=== PATIENT | female | born 1945 | race Caucasian/White ===

== ENCOUNTER → 2017-04-03 11:06 | Outpatient (CLI) | payer MEDICARE, OTHER, SELFPAY ==
[2017-04-03 11:14] LABS: Mucous, Urine 0 SEEN /hpf (<or=2+); Red Blood Cells-Urine 0 SEEN /hpf (0-5)
[2017-04-03 11:38] LABS: Color, Urine Yellow (Yellow); Glucose, Dipstick Normal (Normal); Ketone-Dipstick Negative (Negative); Leukocyte Esterase-Dipstick 100 /ul (Negative); Nitrite-Dipstick Negative (Negative); Occult Blood-Urine Negative /ul (Negative); Protein-Dipstick Negative (Negative); Urine Bilirubin Dipstick Negative (Negative); Urine Clarity Clear (Clear); Urine Urobilinogen Normal (Normal)
[2017-04-03 11:54] LABS: Bacteria RARE /hpf (None Seen); Squamous Epithelial Cells - UA 0-5 SEEN /hpf (5-10); White Blood Cells 0-5 SEEN /hpf (0-5)
[2017-04-03 11:57] LABS: Microalbumin,Random Urine 7.4 mg/L (NO RANGE EST.); Microalbumin:Creatinine Ratio 8.9 mg/g CRE (<30 mg/g CRE)
[2017-04-03 12:33] LABS: Absolute Lymphocyte Count 1.37 X10^3/ul (0.83-4.51); Absolute Neutrophil Count 3.1 X10^3/uL (2.0-7.7); Basophil# 0.03 X10^3/uL; Basophil% 0.6 % (0-1); Eosinophil# 0.15 X10^3/uL; Eosinophils% 2.9 % (0-5); Hematocrit 33.7 % (37-47); Hemoglobin 10.4 g/dl (12.0-15.0); Lymphocyte # 1.37 X10^3/ul (4.0); Lymphocyte % 26.8 % (19-41); Mean Corp Hgb Conc 30.9 g/gl (32-36); Mean Corpuscular Hgb 27.1 pg (27.0-32.0); Mean Corpuscular Volume 87.8 fL (81-99); Mean Platelet Vol. 9.5 fl (6.2-12.0); Monocyte# 0.42 X10^3/uL; Monocyte% 8.2 % (0-10); Neutrophil # 3.13 X10^3/uL (2.7-7.7); Neutrophil % 61.3 % (47-70); Platelet Count 192 K/mm3 (150-450); RBC Distribution Width CV 14.7 % (11.6-14.6); RBC Distribution Width SD 46.9 fl (35.1-43.9); Red Blood Count 3.84 M/mm3 (4.2-5.4); White Blood Count 5.1 K/mm3 (4.4-11.0)
[2017-04-03 12:45] LABS: POSITIVE COUNT NO; POSITIVE DIFFERENTIAL NO; POSITIVE MORPHOLOGY NO
[2017-04-03 13:10] LABS: Vitamin D,25 Hydroxy 48.2 ng/mL (19.95-100.01)
[2017-04-03 13:15] LABS: ALB/GLOB Ratio 0.9 RATIO (0.9-2.4); AST(SGOT) 31 U/L (15-37); Alanine Aminotransfer ALT/SGPT 21 U/L (13-56); Albumin, Serum 3.6 g/dL (3.2-5.0); Alkaline Phosphatase 56 U/L (45-117); Anion Gap 10 (5-15); BUN 16 mg/dL (7-18); BUN/Creat Ratio 18.3 RATIO (10-20); Calcium,Total 8.9 mg/dL (8.5-10.1); Chloride 106 mmol/L (98-107); Cholesterol 150 mg/dL (200); Creatinine, Serum 0.88 mg/dL (0.55-1.02); EST Glomerular Filtration Rate 68 mL/min (>60); Est Glom Filt Rate - Afr Amer 82 mL/min (>60); Globulin 4.2 g/dL (2.2-4.2); Glucose 104 mg/dL (74-106); High Density Lipoprotein 54 mg/dL; Potassium 3.8 mmol/L (3.5-5.1); Protein, Total 7.8 g/dL (6.4-8.2); Sodium Level 139 mmol/L (136-145); Thyroid Stim Hormone (TSH) 0.86 uIU/mL (0.358-3.74); Triglycerides 118 mg/dL; Very Low Density Lipoprotein 24 mg/dL (5-40)
== END ==
PROVIDERS: Family Provider Internal Medicine; PCP Internal Medicine; Visit Provider Internal Medicine
DX: E78.00 Pure hypercholesterolemia, unspecified (principal); E55.9 Vitamin D deficiency, unspecified; E11.9 Type 2 diabetes mellitus without complications
CPT/HCPCS: 36415; 80053; 80061; 81001; 82043; 82306; 82570; 84443; 85025

== ENCOUNTER → 2017-05-05 13:53 | Outpatient (CLI) | payer MEDICARE, OTHER, SELFPAY ==
--- NOTE | 2017-05-05 13:56 | CDU_ITS ---
Reason For Study: bruit Rt. Velocities/BP Lt. Velocities/BP Prox CCA 92.0/25.8 cm/sec. Prox CCA 106/28.3 cm/sec. Mid CCA 90.9/26.4 cm/sec. Mid CCA 110/32.2 cm/sec. Dist CCA 92.6/30.5 cm/sec. Dist CCA 105/29.1 cm/sec. Prox ICA 99.7/18.8 cm/sec. Prox ICA 193/51.1 cm/sec. Mid ICA 101/31.1 cm/sec. Mid ICA 125/41.3 cm/sec. Dist ICA 99.7/28.1 cm/sec. Dist ICA 134/39.3 cm/sec. Rt. ICA/CCA = 1.1. Lt. ICA/CCA = 1.8. Prox ECA 95.6/18.8 cm/sec. Prox ECA 145/25.9 cm/sec. Rt. Vert. 112/25.1 cm/sec. Lt. Vert. 99.8/22.8 cm/sec. Right Extracranial There is intimal thickening but no significant atherosclerotic plaque noted in the right common carotid artery. There is heterogeneous, irregular atherosclerotic plaque noted in the right internal carotid artery. There is heterogeneous, irregular atherosclerotic plaque noted in the right external carotid artery. Antegrade flow is noted in the right vertebral artery. Left Extracranial There is heterogeneous, irregular atherosclerotic plaque noted in the left common carotid artery. There is heterogeneous, irregular atherosclerotic plaque noted in the left internal carotid artery. There is heterogeneous, irregular atherosclerotic plaque noted in the left external carotid artery. Antegrade flow is noted in the left vertebral artery. Procedure Carotid Duplex [id number]. The exam was diagnostic. Exam performed in department. Interpretation Summary Mild (<50%) stenosis right extracranial internal carotid. Moderate (50-69%) stenosis left extracranial internal carotid. Acoustic shadowing is noted in the proximal left internal carotid artery, obscuring portions of the arterial lumen. Therefore, the degree of stenosis may exceed that which is estimated by velocity criteria alone. In this regard, clinical correlation is advised, and alternative imaging may be helpful. Flow within the vertebral arteries is antegrade bilaterally. Ordering Physician: Shanae Pleitez Referring Physician: Shanae Pleitez Performed By: Woodrow Guzman RVT
[2017-05-05 15:14] LABS: Immature Platelet Fraction 1.6 % (1.0-7.9); Reticulocyte Count 1.46 % (0.5-1.5)
[2017-05-05 15:45] LABS: Ferritin 17 ng/mL (8-252); Iron 79 ug/dL (50-170); Iron Binding Capacity,Total 351 ug/dL (250-450); LDH 214 U/L (84-246)
[2017-05-06 09:03] LABS: Vitamin B12 158 pg/mL (211-911)
[2017-05-07 14:34] LABS: Haptoglobin 137 mg/dL (34-200)
[2017-05-13 08:15] LABS: Methylmalonic Acid Bld 293 nmol/L (0-378)
== END ==
PROVIDERS: Family Provider Internal Medicine; PCP Internal Medicine; Visit Provider Internal Medicine
DX: D64.9 Anemia, unspecified (principal); R09.89 Other specified symptoms and signs involving the circulatory and respiratory systems
CPT/HCPCS: 82607; 82728; 82746; 83010; 83540; 83550; 83615; 83921; 85045; 93880

== ENCOUNTER → 2017-05-13 15:51 | Outpatient (CLI) | payer MEDICARE, OTHER, SELFPAY ==
--- NOTE | 2017-05-13 15:54 | CT_ITS ---
STUDY: CTA NECK WITH CONTRAST REASON FOR EXAM: Female, 71 years old. History of the prior right carotid stent and occlusion. History of breast cancer. RADIATION DOSAGE (If Supplied By Facility): CTDIvol = ( 13.78 ) mGy, DLP = ( 318.86 ) mGycm TECHNIQUE: CT angiography with multi-detector data acquisition was performed from the aortic arch to the skull base following intravenous administration of 100mL ml of Isovue 370 contrast. MIP images were reconstructed from the axial data set. Post-processing of the angiographic images was performed, with multiplanar reformation and 3D reconstruction. Individualized dose optimization techniques were used for this CT. COMPARISON: None. FINDINGS: Enlarged left lobe of the thyroid gland with several hypodense nodules within it. This may represent goiters change. AORTIC ARCH: There is atherosclerotic calcific plaque formation of the aortic arch and great vessels arising from the aortic arch, without a hemodynamically significant stenosis. There is a normal origin of the brachiocephalic, left common carotid, and left subclavian arteries. RIGHT CAROTID ARTERIES: There is atherosclerotic plaque formation of the common carotid artery, but without a hemodynamically significant stenosis. Normal right common carotid bulb. A stent is seen in the distal portion of the common carotid artery and proximal portion of the right internal carotid artery. No significant stenosis is seen. Normal visualized cervical portion of the right internal carotid artery. There is mild atherosclerotic plaque formation of the origin of the right external carotid artery with less than 50% cross sectional diameter stenosis. LEFT CAROTID ARTERIES: There is atherosclerotic plaque formation of the common carotid artery, but without a hemodynamically significant stenosis. Normal left common carotid bulb. There is extensive atherosclerotic plaque formation of the origin of the left internal carotid artery with an estimated stenosis of greater than 70%. Normal visualized cervical portion of the left internal carotid artery. Nonstenotic atherosclerotic laxity seen at the origin of the right vertebral artery. VERTEBRAL ARTERIES: Normal bilateral vertebral arteries. CT/CTA Neck W/WO Contrast IMPRESSION: Status post right carotid stent. No significant stenosis seen. Atherosclerotic plaque and occlusion of the left internal carotid artery causing greater than 70% stenosis. Electronically Signed: Rylan Arcos MD at 15:49 EDT Tel [phone], Service support ,
[2017-05-13 16:11] LABS: CREATININE FINGERSTICK < 0.6 mg/dL (0.55-1.02); EGFR FINGERSTICK > 60.0000 mL/min (>60)
== END ==
PROVIDERS: Family Provider Internal Medicine; PCP Internal Medicine; Visit Provider Internal Medicine
DX: I65.23 Occlusion and stenosis of bilateral carotid arteries (principal)
CPT/HCPCS: 70498; Q9967

== ENCOUNTER → 2017-12-03 11:13 | Outpatient (CLI) | payer MEDICARE, OTHER, SELFPAY ==
[2017-12-03 11:23] LABS: Bacteria 0 SEEN /hpf (None Seen); Mucous, Urine 0 SEEN /hpf (<or=2+)
[2017-12-03 12:21] LABS: Absolute Neutrophil Count 3.1 X10^3/uL (2.0-7.7); Basophil# 0.03 X10^3/uL; Basophil% 0.6 % (0-1); Color, Urine Yellow (Yellow); Eosinophil# 0.11 X10^3/uL; Eosinophils% 2.2 % (0-5); Glucose, Dipstick Normal (Normal); Hematocrit 31.4 % (37-47); Hemoglobin 9.7 g/dl (12.0-15.0); Ketone-Dipstick Negative (Negative); Leukocyte Esterase-Dipstick 100 /ul (Negative); Mean Corp Hgb Conc 30.9 g/gl (32-36); Mean Corpuscular Hgb 27.6 pg (27.0-32.0); Mean Corpuscular Volume 89.5 fL (81-99); Mean Platelet Vol. 9.5 fl (6.2-12.0); Neutrophil # 3.05 X10^3/uL (2.7-7.7); Nitrite-Dipstick Negative (Negative); Occult Blood-Urine 10 /ul (Negative); Platelet Count 223 K/mm3 (150-450); Protein-Dipstick Negative (Negative); RBC Distribution Width CV 15.8 % (11.6-14.6); RBC Distribution Width SD 51.7 fl (35.1-43.9); Red Blood Count 3.51 M/mm3 (4.2-5.4); Urine Bilirubin Dipstick Negative (Negative); Urine Clarity Sl. Cloudy (Clear); Urine Urobilinogen Normal (Normal)
[2017-12-03 12:24] LABS: POSITIVE COUNT NO; POSITIVE DIFFERENTIAL NO; POSITIVE MORPHOLOGY NO
[2017-12-03 12:27] LABS: Red Blood Cells-Urine 0-5 SEEN /hpf (0-5); Squamous Epithelial Cells - UA 0-5 SEEN /hpf (5-10); White Blood Cells 10-25 SEEN /hpf (0-5)
[2017-12-03 12:42] LABS: Microalbumin,Random Urine 10.9 mg/L (NO RANGE EST.); Microalbumin:Creatinine Ratio 23.4 mg/g CRE (<30 mg/g CRE)
[2017-12-03 12:53] LABS: ALB/GLOB Ratio 0.9 RATIO (0.9-2.4); AST(SGOT) 34 U/L (15-37); Alanine Aminotransfer ALT/SGPT 24 U/L (13-56); Albumin, Serum 3.3 g/dL (3.2-5.0); Alkaline Phosphatase 33 U/L (45-117); Anion Gap 6 (5-15); BUN 20 mg/dL (7-18); BUN/Creat Ratio 17.7 RATIO (10-20); Chloride 107 mmol/L (98-107); Cholesterol 164 mg/dL (200); Creatinine, Serum 1.13 mg/dL (0.55-1.02); EST Glomerular Filtration Rate 51 mL/min (>60); Est Glom Filt Rate - Afr Amer 61 mL/min (>60); Globulin 3.6 g/dL (2.2-4.2); Glucose 100 mg/dL (74-106); High Density Lipoprotein 29 mg/dL; Potassium 3.8 mmol/L (3.5-5.1); Protein, Total 6.9 g/dL (6.4-8.2); Sodium Level 137 mmol/L (136-145); Thyroid Stim Hormone (TSH) 0.68 uIU/mL (0.358-3.74); Triglycerides 151 mg/dL; Very Low Density Lipoprotein 30 mg/dL (5-40)
[2017-12-03 13:26] LABS: Vitamin D,25 Hydroxy 53.2 ng/mL (29.95-100.01)
== END ==
PROVIDERS: Family Provider Internal Medicine; PCP Internal Medicine; Referring Provider Internal Medicine; Visit Provider Internal Medicine
DX: E11.9 Type 2 diabetes mellitus without complications (principal); E55.9 Vitamin D deficiency, unspecified
CPT/HCPCS: 36415; 80053; 80061; 81001; 82043; 82306; 82570; 84443; 85025

== ENCOUNTER → 2018-02-11 15:34 | Outpatient (CLI) | payer MEDICARE, OTHER, SELFPAY ==
--- NOTE | 2018-02-11 15:42 | BI_ITS ---
MAMMOGRAPHY - BILATERAL SCREENING REASON FOR EXAM: Female, 72 years old. Routine annual screening examination. PERTINENT HISTORY: Personal history of breast cancer. Prior right lumpectomy and radiation treatment. TECHNIQUE: Digital bilateral breast elijah (3D mammographic acquisition) in the CC and MLO projections. 2-D mediolateral oblique (MLO) and craniocaudad (CC) views of both breasts were obtained. CAD: Full Field Digital Mammography with Computer Added Detection was performed. COMPARISON: Comparison is made with prior study dated October 24, 2016. FINDINGS: Breast Composition: There are scattered areas of fibroglandular density. There are no dominant masses or suspicious calcifications. The patient is status post right lumpectomy with resultant architectural distortion in the subcarinal region of the right breast. This is unchanged. No other significant abnormalities are identified. There has been no significant change since the prior study. BI/SCREENING MAMM (CAD), BILAT IMPRESSION: Stable bilateral screening mammogram. Yearly follow-up mammogram recommended. (A) ASSESSMENT CATEGORY: BIRADS Category 2: Benign. A letter regarding these results will be sent to the patient by the facility within 30 days. Approximately 10% of breast cancers are not detected by mammography. A normal mammogram should not delay biopsy of a clinically suspicious abnormality. [id number] Electronically Signed: Rylan Arcos MD at 8:12 EST Tel [phone], Service support ,
--- NOTE | 2018-02-11 15:45 | BD_ITS ---
STUDY: DUAL ENERGY X-RAY ABSORPTIOMETRY / DXA REASON FOR EXAM: Female, 72 years old. The patient is postmenopausal. Loss of height. History of breast cancer. TECHNIQUE: Bone Mineral Density (BMD) measurements of lumbar spine and bilateral hips were obtained. COMPARISON: Comparison is made with prior study dated April 17, 2015. FINDINGS: Lumbar Spine (L1-L4): g/cm2 (1.088) / T-score (-0.7) / Z-score (1.0) Findings are suggestive of normal bone density with a low fracture risk. Left Femur Total: g/cm2 (0.784) / T-score (-1.8) / Z-score (-0.3) Left Femoral Neck: g/cm2 (0.836) / T-score (-1.5) / Z-score (0.2) Right Femur Total: g/cm2 (0.787) / T-score (-1.8) / Z-score (-0.3) Right Femoral Neck: g/cm2 (0.815) / T-score (-1.6) / Z-score (0.1) The T-Scores on the most recent prior examination were: Lumbar Spine (L1-L4): There has been improvement of bone density since the previous examination. Left Femur Total: which represents a worsening of 0.8%. Right Femur Total: which represents an improvement of 0.9%. BD/Dexa Bone Density Study IMPRESSION: The patient is considered osteopenic as outlined below according to World Valdez Organization (WHO) criteria with a moderate fracture risk. There has been improvement of bone density since the previous examination. Reference Information: The T-score is the number of standard deviations above or below the standard which is normal for young adults at their peak bone mineral density. The World Health Organization (WHO) interprets the T-scores as follows: Above -1 Normal bone density Between -1 and -2.5 Osteopenia Equal to / or below -2.5 Osteoporosis As a practical clinical guideline, osteopenia may be graded as follows: Mild -1 through -1.5 Moderate -1.6 through -2.0 Severe -2.1 through -2.4 The Z-score is the number of standard deviations above or below age-matched controls. A Z-score of less than -1.5 would be considered abnormal. References: 1. NIH Osteoporosis and Related Bone Diseases http://www.osteo.org 2. International Society for Clinical Densitometry http://www.iscd.org 3. National Osteoporosis Foundation http://www.nof.org Electronically Signed: Rylan Arcos MD at 13:45 EST Tel [phone], Service support ,
== END ==
PROVIDERS: Family Provider Internal Medicine; PCP Internal Medicine; Visit Provider Internal Medicine
DX: Z12.31 Encounter for screening mammogram for malignant neoplasm of breast (principal); Z78.0 Asymptomatic menopausal state
CPT/HCPCS: 77063; 77067; 77080

== ENCOUNTER 2018-04-02 16:37 | Emergency (ER) | payer MEDICARE, OTHER, SELFPAY ==
[2018-04-02 16:38] VITALS: BP 136/68; PULSE 84; RESP 16; TEMP 36.8; O2SAT 99; BMI 21.9
--- NOTE | 2018-04-02 17:00 | CT_ITS ---
STUDY: CT BRAIN WITHOUT CONTRAST REASON FOR EXAM: Female, 72 years old. Head injury from falling today. Also bruising of the head secondary to a prior fall 2 weeks ago. Laceration of forehead. RADIATION DOSAGE (If Supplied By Facility): CTDIvol = ( 60.81 ) mGy, DLP = ( 1044.28 ) mGycm TECHNIQUE: Transaxial CT imaging of the brain was performed without administration of intravenous contrast material. Individualized dose optimization techniques were used for this CT. COMPARISON: None. FINDINGS: Laceration or for head without body. Normal calvarium. Normal size ventricles and extra-axial spaces for the patient's age. There are areas of decreased attenuation within the white matter tracts of the supratentorial brain, consistent with microvascular disease changes. Normal basal ganglia and thalami. Normal brainstem. Normal cerebellum. Carotid and vertebral artery calcification. There is no intracranial hemorrhage. There are no findings of an acute ischemic infarction. Normal visualized paranasal sinuses. CT/Brain/Head without Contrast IMPRESSION: No acute intracranial findings. Negative for hemorrhage, hematoma or mass density. Mild involutional changes appropriate for age. Carotid and vertebral artery calcification. Laceration of the forehead without underlying skull fracture or foreign body. Electronically Signed: Dina Peterson MD at 17:40 EST , Service support ,
--- NOTE | 2018-04-02 17:06 | ED.DCSUM_ITS ---
- ER Visit Summary Date of Service: 04/02/18 Chief Complaint: Tripped and fell with head injury and forehead laceration History of Present Illness: The patient is a 72 F who was coming out of a restaurant with her significant other tripped and fell on uneven sidewalk and landed on her face and forehead. No LOC. This occurred about an hour ago. No nausea or vomiting. Mild headache. Unsure of her last tetanus shot. Landed on her hands also but denies any pain. And abrasion to her left knee. She denies being on any blood thinners. Physical Examination: Older female no acute distress. Vital signs are stable and afebrile. HEENT exam is too small laceration on the midportion of her forehead. There is symmetrical. She is a swollen and tender bridge of her nose. There is abrasions to her nose that was bleeding but no active bleeding. Pupils are round reactive to light. There is some bruising about her right eyebrow which is old from a prior fall several weeks ago. No dental injury. Posterior scalp nontender. C-spine nontender. Trachea midline. Lungs clear to auscultation bilaterally. Heart regular rate and rhythm no murmur. Chest wall nontender. Abdomen soft nontender. Pelvic girdle intact. Patient has full range of motion to both upper and lower extremities. She has minor abrasions to her hands. No bony deformities or significant swelling. She has normal range of motion to both hands, wrists, elbows and shoulders. She is a minor abrasion to her left knee but no bony deformity. She has normal flexion-extension of both hips, both knees and ankles and feet. Back is nontender. Neurologically she is awake and alert with no focal motor deficits. GCS of 15. Test Results: CT scan of the brain shows no acute abnormality. No intracranial bleed. No skull fracture. Emergency Department Course and Treatment: Laceration repair to the forehead. 2 separate lacerations. Cleaned using Shur-Clens and washed with saline. Explored. Locally anesthetized with 1% lidocaine. Closed using 5-0 Ethilon sutures. Proper hemostasis wound closure obtained. Patient tolerated procedure well. Patient's right for laceration was approximately 2 cm in length and was repaired with 2 simple interrupted 5-0 Ethilon sutures. The left forehead laceration was about 3 cm in length it was a T shaped and was closed with 3 simple interrupted 5-0 Ethilon sutures. Proper hemostasis wound closure obtained. Both wounds were explored, cleaned with Shur-Clens and washed with saline. Patient tolerated procedure well. Treatment Plan: Wound care. Suture removal in 5 days. Head injury instructions. Disposition: Discharge Impression: Tripped and fell Close head injury Forehead lacerations with ER repair First laceration 2 cm Second laceration T-shaped and 3 cm both repaired Bilateral hand abrasions Left knee contusion and abrasion Tetanus updated This note was generated with [employer] dictation software. It may contain incorrect words, spelling, and punctuation that were not noted in review of the chart prior to signing ED Disposition - Plan for ED Patient: Referrals: Shanae Pleitez DO [Primary Care Provider] -
[2018-04-02] MEDS: Diphth,Pertuss(Acell),Tet Vac 0.5 ML Vial IM (17:20)
--- NOTE | 2018-04-02 19:37 | ED.DEP ---
ED Disposition - Plan for ED Patient: Disposition: Home or Assisted Living Instructions: ED Laceration All, ED Head Injury Closed Referrals: Shanae Pleitez DO [Primary Care Provider] - 7 Days for suture removal Additional Instructions: Ice or cool compresses to face to decrease swelling. Keep wounds clean and apply antibiotic ointment twice daily. Suture removal in 5-7 days. Return if intractable vomiting, severe headache or not acting normally.
== END 2018-04-02 20:07 | disposition home or self-care (01) ==
PROVIDERS: Emergency Provider Emergency Medicine; Family Provider Internal Medicine; PCP Internal Medicine
DX: S01.81XA Laceration without foreign body of other part of head, initial encounter (principal); S60.512A Abrasion of left hand, initial encounter; S60.511A Abrasion of right hand, initial encounter; S80.212A Abrasion, left knee, initial encounter; W18.09XA Striking against other object with subsequent fall, initial encounter; Y93.01 Activity, walking, marching and hiking; Y92.481 Parking lot as the place of occurrence of the external cause; E11.9 Type 2 diabetes mellitus without complications; Z86.73 Personal history of transient ischemic attack (TIA), and cerebral infarction without residual deficits
CPT/HCPCS: 12013; 70450; 90471; 90715; 99283

== ENCOUNTER 2018-04-09 11:19 | Emergency (ER) | payer MEDICARE, OTHER, SELFPAY ==
[2018-04-09 11:20] VITALS: BP 118/59; PULSE 54; RESP 16; TEMP 36.5; O2SAT 96; BMI 20.5
--- NOTE | 2018-04-09 11:34 | ED.VISSUMM ---
- ER Visit Summary Date of Service: 04/09/18 Chief Complaint: [Suture removal] History of Present Illness: The patient is a 72 F [ presents the emergency department requesting suture removal from prior suture repair 7 days ago. Patient sustained a mechanical fall 7 days ago and was seen in this emergency department and had repair of 2 lacerations on her forehead. Patient denies any complaints. He denies any drainage or redness. She denies any fevers. Patient feels well otherwise.] Physical Examination: [HEENT-PERRLA, EOMI. Cranial nerves II through XII grossly intact. TMs clear. Mucous membranes moist. No adenopathy. Patient has 2 lacerations to the frontal part of her forehead one with 2 single interrupted sutures and one with 3 single interrupted sutures. Wound edges are well approximated. No evidence of drainage or erythema. Cardiovascular-regular rate and rhythm without murmur or ectopy Lungs-clear to auscultation, chest wall stable without crepitus or subcu emphysema Abdomen-normoactive bowel sounds, soft, nontender, no rebound or rigidity, no peritoneal signs. Extremities-intact ?4, normal range of motion, normal pulses, atraumatic] Test Results: [None indicated] Emergency Department Course and Treatment: [Sutures were removed easily] Treatment Plan: [Patient advised to clean wounds gently with soap and water. Follow-up with primary care physician as needed.] Disposition: [Discharged home in stable condition] Impression: [Suture removal forehead-no complications] This note was generated with [employer] dictation software. It may contain incorrect words, spelling, and punctuation that were not noted in review of the chart prior to signing ED Disposition - Plan for ED Patient: Referrals: Shanae Pleitez DO [Primary Care Provider] -
--- NOTE | 2018-04-09 11:35 | ED.DEP ---
ED Disposition - Plan for ED Patient: Instructions: ED Wound Check Sutr Remove No Infec Referrals: Shanae Pleitez, [Primary Care Provider] - As Needed
[2018-04-09 12:05] VITALS: BP 118/59; PULSE 54; RESP 14
== END 2018-04-09 12:05 | disposition home or self-care (01) ==
LOC: ED 12:00
PROVIDERS: Emergency Provider Emergency Medicine; Family Provider Internal Medicine; PCP Internal Medicine
DX: Z48.02 Encounter for removal of sutures (principal); S01.81XD Laceration without foreign body of other part of head, subsequent encounter; W19.XXXD Unspecified fall, subsequent encounter; E11.9 Type 2 diabetes mellitus without complications; I10 Essential (primary) hypertension; Z85.3 Personal history of malignant neoplasm of breast; Z79.84 Long term (current) use of oral hypoglycemic drugs; Z79.899 Other long term (current) drug therapy
CPT/HCPCS: 99282

== ENCOUNTER → 2019-09-29 16:31 | Outpatient (CLI) | payer MEDICARE, OTHER, SELFPAY | PROVIDERS: PCP Internal Medicine; Referring Provider Internal Medicine; Visit Provider Internal Medicine | DX: E87.5 Hyperkalemia (principal) | CPT/HCPCS: 36415; 84132 ==

== ENCOUNTER 2020-04-17 13:13 | Outpatient (RCR) | payer MEDICARE, OTHER, SELFPAY ==
[2020-04-17] MEDS: COVID-19 VACC, MRNA(PFIZER)/PF 30 MCG/0.3 ML SYRINGE IM (11:43)
[2020-05-08] MEDS: COVID-19 VACC, MRNA(PFIZER)/PF 30 MCG/0.3 ML SYRINGE IM (11:44)
== END 2020-07-17 23:59 ==
LOC: IMMUN 13:13
PROVIDERS: PCP Internal Medicine; Referring Provider Family Medicine; Visit Provider Family Medicine
DX: Z23 Encounter for immunization (principal)
CPT/HCPCS: 0001A; 0002A; 91300

== ENCOUNTER → 2020-09-18 12:52 | Outpatient (CLI) | payer MEDICARE, OTHER, SELFPAY ==
--- NOTE | 2020-09-18 12:55 | BI_ITS ---
MAMMOGRAPHY - BILATERAL SCREENING REASON FOR EXAM: Female, 74 years old. Routine annual screening examination. PERTINENT HISTORY: Personal history of breast cancer. Prior right lumpectomy and radiation treatment. TECHNIQUE: Digital bilateral breast opal (3D mammographic acquisition) in the CC and MLO projections. 2-D mediolateral oblique (MLO) and craniocaudad (CC) views of both breasts were obtained. CAD: Full Field Digital Mammography with Computer Added Detection was performed. COMPARISON: Comparison is made with prior study dated 02/11/2018 and 10/24/2016. FINDINGS: Breast Composition: There are scattered areas of fibroglandular density. There are no dominant masses or suspicious calcifications. Stable focal area of architectural distortion in the subareolar region of the right breast in keeping with prior lumpectomy. No other significant abnormalities are identified. There has been no significant change since the prior study. BI/SCRN MAMM (CAD)W/OPAL BILAT IMPRESSION: Stable bilateral screening mammogram. Yearly follow-up mammogram recommended. (A) ASSESSMENT CATEGORY: BIRADS Category 2: Benign. A letter regarding these results will be sent to the patient by the facility within 30 days. Approximately 10% of breast cancers are not detected by mammography. A normal mammogram should not delay biopsy of a clinically suspicious abnormality. [id number] Electronically Signed: Rylan Arcos MD at 13:52 EDT , Service support ,
--- NOTE | 2020-09-18 12:58 | BD_ITS ---
STUDY: DUAL ENERGY X-RAY ABSORPTIOMETRY / DXA REASON FOR EXAM: Female, 74 years old. [id number]. Patient is postmenopausal. TECHNIQUE: Bone Mineral Density (BMD) measurements of lumbar spine and bilateral hips were obtained. COMPARISON: Comparison is made with prior study dated 02/11/2018. FINDINGS: Lumbar Spine (L1-L4): g/cm2 (0.975) / T-score (-0.7) / Z-score (1.6) Findings are suggestive of normal bone density with a low fracture risk. Left Femur Total: g/cm2 (0.752) / T-score (-1.6) / Z-score (0.1) Left Femoral Neck: g/cm2 (0.685) / T-score (-1.5) / Z-score (0.5) Right Femur Total: g/cm2 (0.763) / T-score (-1.5) / Z-score (0.2) Right Femoral Neck: g/cm2 (0.658) / T-score (-1.7) / Z-score (0.2) The T-Scores on the most recent prior examination were: Lumbar Spine (L1-L4): There has been worsening of bone density since the previous examination. Left Femur Total: which represents an improvement of 3.9%. Right Femur Total: which represents an improvement of 4.9%. BD/Dexa Bone Density Study IMPRESSION: The patient is considered osteopenic as outlined below according to World [employer] Organization (WHO) criteria with a moderate fracture risk. There has been worsening of bone density since the previous examination. Reference Information: The T-score is the number of standard deviations above or below the standard which is normal for young adults at their peak bone mineral density. The World Health Organization (WHO) interprets the T-scores as follows: Above -1 Normal bone density Between -1 and -2.5 Osteopenia Equal to / or below -2.5 Osteoporosis As a practical clinical guideline, osteopenia may be graded as follows: Mild -1 through -1.5 Moderate -1.6 through -2.0 Severe -2.1 through -2.4 The Z-score is the number of standard deviations above or below age-matched controls. A Z-score of less than -1.5 would be considered abnormal. References: 1. NIH Osteoporosis and Related Bone Diseases www osteo.org 2. International Society for Clinical Densitometry www iscd.org 3. National Osteoporosis Foundation www nof.org Electronically Signed: Rylan Arcos MD at 14:49 EDT , Service support ,
== END ==
PROVIDERS: PCP Internal Medicine; Referring Provider Internal Medicine; Visit Provider Internal Medicine
DX: Z12.31 Encounter for screening mammogram for malignant neoplasm of breast (principal); Z78.0 Asymptomatic menopausal state; M85.80 Other specified disorders of bone density and structure, unspecified site
CPT/HCPCS: 77063; 77067; 77080